=== PATIENT | female | born 1945 | race Caucasian/White ===

== ENCOUNTER 2020-12-12 10:13 | Inpatient (IN) | payer MEDICARE, OTHER ==
[2020-12-12] MEDS ORDERED: NA CHLORIDE 0.9% 1,000 ML ONE (11:05)
[2020-12-12] MEDS ORDERED: CEFTRIAXONE/SWI 1gm 1 GM/10 ML SYR ONE (11:05)
[2020-12-12] MEDS ORDERED: METRONIDAZOLE 500mg IVPB 500 MG/100 ML BAG IV ONE (11:05)
[2020-12-12 11:28] LABS: Absolute Lymphocytes (CBC) 0.9 K/uL (0.7-4.9); Basophils % 0.7 % (0-1.3); Hematocrit 37.2 % (36.0-45.0); Lymphocytes % 4.5 % (15.3-44.8); MPV 9.9 fL (7.6-11.3); RBC Red Blood Cell Count 3.81 M/uL (3.86-4.86)
--- NOTE | 2020-12-12 11:35 | RAD REPORT ---
EXAM DESCRIPTION: CT - C Spine Wo Con - 12/12/2020 10:37 am CLINICAL HISTORY: Neck pain, decreased mental status COMPARISON: None. TECHNIQUE: Axial 2 mm thick images of the cervical spine were obtained with sagittal and coronal rec onstruction images generated and reviewed. All CT scans are performed using dose optimization technique as appropriate and may include automated exposure control or mA/KV adjustment according to patient size. FINDINGS: Cervical bodies are normal in height. No fracture or pathologic bone process identifiable. There is a minimal left convex scoliotic curvature in the spine. Very slight retrolisthesis of C3 on C4 noted. Advanced degenerative change present at the dens anterior arch C1 level. Degenerative peralta ge present as well at the C1 lateral mass articulation with the C2 body. Advanced degenerative change at C6-7 with posterior endplate spurring and mild bilateral bony foramin al encroachment. Multilevel facet joint degenerative change. No other significant cervical spine find ing. No paraspinal mass or hematoma. Central canal detail is inherently limited on CT imaging. IMPRESSION: Cervical spine degenerative changes are present as detailed. No central spinal stenosis or significant foraminal stenosis changes. Exam is inherently limited in the central canal. Exam is further limited by the amount of underlying motion.
[2020-12-12 11:36] LABS: Protime INR 0.93
--- NOTE | 2020-12-12 11:38 | RAD REPORT ---
EXAM DESCRIPTION: CT - Head Brain Wo Cont - 12/12/2020 10:36 am CLINICAL HISTORY: CONFUSED COMPARISON: No comparisons TECHNIQUE: Axial 5 mm thick images of the head were obtained without IV contrast. All CT scans are performed using dose optimization technique as appropriate and may include automated exposure control or mA/KV adjustment according to patient size. FINDINGS: No intracranial hemorrhage is present. No midline shift. Moderate severity atrophy and adv anced chronic ischemic changes are present as a baseline. Ventricles are in proportion to the amount of volume loss. Approximately 5 centimeter area of diminished attenuation is present involving the le ft occipital and parietal lobes. There is loss of pace matter - white matter differentiation and sulc al effacement. No similar findings elsewhere. Mastoid air cells and visualized portions of the paranasal sinuses are clear. No acute bony findings. IMPRESSION: Approximately 5 centimeter sized subacute nonhemorrhagic left parietooccipital CVA. Moderate atrophy as a baseline with very advanced chronic ischemic change. Ventricles are in proporti on to volume loss.
[2020-12-12 11:51] LABS: ALT/SGPT 11 U/L (12-78); AST/SGOT 21 U/L (15-37); Albumin 3.1 g/dL (3.4-5.0); Alkaline Phosphatase 53 U/L (45-117); BUN Blood Urea Nitrogen 44 mg/dL (7-18); Bicarbonate 39 mmol/L (21-32); Bilirubin Direct < 0.1 mg/dL (0-0.2); Bilirubin Total 0.3 mg/dL (0.2-1.0); Glucose Level 142 mg/dL (74-106); Potassium 4.6 mmol/L (3.5-5.1); Protein, Total 6.3 g/dL (6.4-8.2); Sodium Level 139 mmol/L (136-145)
[2020-12-12 12:03] LABS: Blood Morphology Comment NOT SEEN (NOT SEEN); Platelet Estimate ADEQ
--- NOTE | 2020-12-12 12:53 | EDPHYS ---
Physician Documentation [facility] Name: Jeri Lemus Age: 75 yrs Sex: Female : 1945 Arrival Date: 12/12/2020 Time: 10:21 Bed 2 Private MD: ED Physician Artie Hudson HPI: 12/12 11:26 This 75 yrs old Female presents to ER via EMS with complaints of Unresponsive.ma2 11:26 Onset: The symptoms/episode began/occurred gradually, 1 day(s) ago. Associated signs ma2 and symptoms: Pertinent negatives: blurred vision, confusion, focal weakness, head injury, palpitations, seizure, shortness of breath, syncope. Severity of symptoms: At their worst the symptoms were mild in the emergency department the symptoms are unchanged. The patient has not experienced similar symptoms in the past, The patient has experienced a previous episode. Historical: - Allergies: 11:13 No Known Allergies; ld1 - PMHx: 11:13 COPD; ld1 11:15 Hypertension; tremor; ld1 - Immunization history:: Client reports receiving the 2nd dose of the Covid vaccine. - Social history:: Smoking status: unknown Patient/guardian denies using alcohol, IV drugs, The patient lives. - Family history:: not pertinent. ROS: 11:26 Constitutional: Negative for fever, chills, and weight loss. ma2 11:26 Unable to obtain ROS due to altered mental status, baseline dementia. Exam: 11:26 Head/Face: Normocephalic, atraumatic. Eyes: Pupils equal round and reactive to light, ma2 extra-ocular motions intact. Lids and lashes normal. Conjunctiva and sclera are non-icteric and not injected. Cornea within normal limits. Periorbital areas with no swelling, redness, or edema. ENT: Nares patent. No nasal discharge, no septal abnormalities noted. Tympanic membranes are normal and external auditory canals are clear. Oropharynx with no redness, swelling, or masses, exudates, or evidence of obstruction, uvula midline. Mucous membranes moist. Neck: Trachea midline, no thyromegaly or masses palpated, and no cervical lymphadenopathy. Supple, full range of motion without nuchal rigidity, or vertebral point tenderness. No Meningismus. Chest/axilla: Normal chest wall appearance and motion. Nontender with no deformity. No lesions are appreciated. Cardiovascular: Regular rate and rhythm with a normal S1 and S2. No gallops, murmurs, or rubs. Normal PMI, no JVD. No pulse deficits. Respiratory: Lungs have equal breath sounds bilaterally, bilateral wheezes. rr is 8 per minute she is in moderate respiratory distress Abdomen/GI: Soft, non-tender, with normal bowel sounds. No distension or tympany. No guarding or rebound. No evidence of tenderness throughout. Back: No spinal tenderness. No costovertebral tenderness. Full range of motion. Skin: Warm, dry with normal turgor. Normal color with no rashes, no lesions, and no evidence of cellulitis. MS/ Extremity: Pulses equal, no cyanosis. Neurovascular intact. Full, normal range of motion. 11:26 Neuro: Mentation: unable to follow commands, somnolent, unable to test, unresponsive . Vital Signs: 10:25 BP 113 / 78; Pulse 116; Resp 20; Pulse Ox 99% ; ld1 10:30 BP 122 / 71; Pulse 111; Resp 19; Pulse Ox 100% on Non-rebreather mask; ld1 11:15 BP 111 / 79; Pulse 111; Resp 17; Pulse Ox 99% on Non-rebreather mask; ld1 11:57 BP 114 / 74; Pulse 110; Resp 20; Pulse Ox 100% ; ld1 12:30 BP 124 / 88; Pulse 109; Resp 23; Pulse Ox 99% on Non-rebreather mask; ld1 13:15 BP 118 / 82; Pulse 104; Resp 17; Pulse Ox 99% ; ld1 13:45 BP 102 / 68; Pulse 102; Resp 17; Pulse Ox 100% on Non-rebreather mask; ld1 14:45 BP 110 / 90; Pulse 100; Resp 19; Pulse Ox 98% ; ld1 16:10 BP 108 / 79; Pulse 101; Resp 17; Pulse Ox 93% on Venturi mask; ld1 NIH Stroke Scale Scores: 12:30 NIHSS Score: 29 ld1 MDM: 10:21 Patient medically screened. ma2 11:26 Differential diagnosis: CVA, generalized weakness, GI bleed, head injury, hypovolemia, ma2 sepsis. ED course: i talked with her daughter Tai, she states that her mom ms. lemus does not want intubation or CPR, she also states that she wants hospice, and the order for hospice is in process.. 12:32 Data reviewed: vital signs, nurses notes. Counseling: I had a detailed discussion with maJosep the patient and/or guardian regarding: the historical points, exam findings, and any diagnostic results supporting the discharge/admit diagnosis, the presence of at least one elevated blood pressure reading (>120/80) during this emergency department visit. Response to treatment: the patient's symptoms have markedly improved after treatment. ED course: discussed with dr. Sousa and he is happy to see her in er '. 13:33 ED course: dr. phipps saw this patient and he also talked to the daughter Jose. it ma2 seems they have Hospice with nursing care at home. and they would not want admission at this time and would like to continue Hosp[ice. 14:42 ED course: family changed their mind and would like a hospitalization . [facility] 12/12 10:24 Order name: Acetaminophen; Complete Time: 12:26 [facility] 12/12 10:24 Order name: Basic Metabolic Panel; Complete Time: 12:26 [facility] 12/12 10:24 Order name: CBC with Diff; Complete Time: 12:26 [facility] 12/12 10:24 Order name: ETOH Level; Complete Time: 12:26 [facility] 12/12 10:24 Order name: Hepatic Function; Complete Time: 12:26 [facility] 12/12 10:24 Order name: PT-INR; Complete Time: 12:26 [facility] 12/12 10:24 Order name: Ptt, Activated; Complete Time: 12:26 [facility] 12/12 10:24 Order name: Salicylate; Complete Time: 12:26 [facility] 12/12 10:24 Order name: Urine Drug Screen; Complete Time: 13:33 [facility] 12/12 10:42 Order name: Blood Culture Adult (2) [facility] 12/12 10:42 Order name: Lactate; Complete Time: 12:26 [facility] 12/12 11:26 Order name: COVID-19 : Document "Date of Symptom Onset" if Symptomatic. [facility] 12/12 12:03 Order name: Manual Differential; Complete Time: 12:26 EDMA 12/12 10:24 Order name: CT Head Brain wo Cont; Complete Time: 12:26 [facility] 12/12 10:24 Order name: EKG; Complete Time: 10:24 al2 12/12 10:24 Order name: EKG - Nurse/Tech; Complete Time: 11:57 al2 12/12 10:24 Order name: IV Saline Lock; Complete Time: 11:16 al2 12/12 10:24 Order name: Labs collected and sent; Complete Time: 11:17 al2 12/12 10:24 Order name: Urine Dipstick-Ancillary (obtain specimen); Complete Time: 14:38 al2 12/12 10:24 Order name: CT C Spine; Complete Time: 12:26 al2 12/12 12:42 Order name: CXR XRAY [facility] 12/12 12:42 Order name: Chest Single View; Complete Time: 13:33 EDMS 12/12 12:48 Order name: SARS-COV-2 RT PCR; Complete Time: 13:33 EDMS 12/12 14:29 Order name: Straight Cath - Urine; Complete Time: 14:38 al2 12/12 14:46 Order name: Urinalysis jl7 Administered Medications: 11:05 Drug: NS 0.9% 1000 ml Route: IV; Rate: 125 ml/hr; Site: right forearm; ld1 16:44 Follow up: Response: No adverse reaction; IV Status: Infusion continued upon admission ld1 11:05 Drug: Flagyl 500 mg Volume: 100 ml; Route: IVPB; Rate: 200 ml/hr; Infused Over: 30 ld1 mins; Site: right forearm; 11:35 Follow up: Response: No adverse reaction; IV Status: Completed infusion ld1 11:59 Follow up: Response: No adverse reaction ld1 11:08 Drug: Rocephin (cefTRIAXone) 1 grams Route: IV; Rate: calculated rate; Site: left ld1 forearm; 11:25 Follow up: Response: No adverse reaction ld1 Disposition: 12/12/20 14:41 Hospitalization ordered by Jg Phipps for Observation. Preliminary diagnosis is Cerebral infarction. - Bed requested for Telemetry/MedSurg (observation). - Status is Observation. ld1 - Condition is Stable. - Problem is new. - Symptoms are unchanged. NIH Stroke Scale - NIH Stroke Score Date: 12/12/2020 Time: 12:30 Total Score = 29 1a. Level of Consciousness (LOC) - 3(Unresponsive) 1b. Level of Consciousness (LOC) (Year \\T\\ Age) - 2(Neither) 1c. LOC Commands (Open \\T\\ Closes Eyes/Managing Consultant Clinical Professor) - 2(Neither) 2. Best Gaze (Lateral Gaze Paresis) - 0(Normal) 3. Visual Field Loss - 1(Partial hemianopia) 4. Facial Palsy - 0(Normal) 5a. Left Arm: Motor (10-second hold) - 3(No effort against gravity) 5b. Right Arm: Motor (10-second hold) - 3(No effort against gravity) 6a. Left Leg: Motor (5-second hold - always test supine) - 3(No effort against gravity) 6b. Right Leg: Motor (5-second hold - always test supine) - 3(No effort against gravity) 7. Limb Ataxia (finger/nose \\T\\ heel/lizama - test with eyes open) - 0(Absent) 8. Sensory Loss (pinprick arms/legs/face) - 2(Severe to total loss) 9. Best Language: Aphasia (description/naming/reading) - 3(Mute, global aphasia) 10. Dysarthria (speech clarity - read or repeat words) - 2(Severe) 11. Extinction and Inattention (visual/tactile/auditory/spatial/personal) - 2(Profound) Initials: ld1 Signatures: Dispatcher [employer] EDMS Artie Hudson MD MD ma2 Yuly Mcpherson Lauren, RN RN ld1 Corrections: (The following items were deleted from the chart) 12:05 11:27 CORONAVIRUS ordered. EDMA EDMS 13:35 12:52 Hospitalization Ordered by Jg Phipps DO for Inpatient Admission. ma2 Preliminary diagnosis is Cerebral infarction. Bed requested for Telemetry/MedSurg (Inpatient). Status is Inpatient Admission. Condition is Stable. Problem is new. Symptoms are unchanged. ma2 14:41 13:52 12/12/2020 13:52 Discharged to Home. Impression: Cerebral infarction; ma2 Pneumonia due to other specified infectious organisms. Condition is Fair. Discharge Instructions: Community-Acquired Pneumonia, Adult, Ischemic Stroke Treated Without Warfarin. Prescriptions for Zithromax Z-Paolo 250 mg Oral Tablet - take 1 tablet by ORAL route as directed for 5 days Day 1 - take two (2) tablets one time. Day 2, 3, 4 , 5 take one (1) tablet once daily.; 6 tablet. and Forms are Medication Reconciliation Form, Thank You Letter, Antibiotic Education, Prescription Opioid Use. Follow up: Private Physician; When: Tomorrow; Reason: Continuance of care. ma2 15:23 14:41 Hospitalization Ordered by Jg Phipps DO for Observation. Preliminary eb diagnosis is Cerebral infarction. Bed requested for Telemetry/MedSurg (observation). Status is Observation. Condition is Stable. Problem is new. Symptoms are unchanged. al2 16:43 15:23 12/12/2020 14:41 Hospitalization Ordered by Jg Phipps DO for ld1 Observation. Preliminary diagnosis is Cerebral infarction. Bed requested for Telemetry/MedSurg (observation). Status is Observation. Condition is Stable. Problem is new. Symptoms are unchanged. eb
--- NOTE | 2020-12-12 12:53 | ER ---
Nurse's Notes [facility] Name: Jeri Che Age: 75 yrs Sex: Female : 1945 Arrival Date: 12/12/2020 Time: 10:21 Bed 2 Private MD: Diagnosis: Cerebral infarction Presentation: 12/12 10:21 Chief complaint: EMS states: Toned out by family due to unresponsive, baseline AOx4, ld1 currently patient not verbally responding, unresponsive to pain, 76% on room air upon arrival, up to 99% on non rebreather. Coronavirus screen: Client denies travel out of the [place] in the last 14 days. Client presents with at least one sign or symptom that may indicate coronavirus-19. Ebola Screen: No symptoms or risks identified at this time. 10:21 Method Of Arrival: EMS: [facility] ld1 10:25 Initial Sepsis Screen: Does the patient meet any 2 criteria? RR > 20 per min. Altered ld1 Mental Status. HR > 90 bpm. Does the patient have a suspected source of infection? No. Patient's initial sepsis screen is negative. Risk Assessment: Do you want to hurt yourself or someone else? Patient reports no desire to harm self or others. Onset of symptoms was December 12, 2020. 10:25 Acuity: DARIAN 2 ld1 11:10 Care prior to arrival: IV initiated. 20 GA, in the right forearm, Glucose check: 156 ld1 Oxygen administered. via a non-rebreather mask. Transition of care: patient was not received from another setting of care. Triage Assessment: 16:08 General: Appears uncomfortable, slender, Behavior is calm, cooperative, drowsy, quiet, ld1 unresponsive. Historical: - Allergies: 11:13 No Known Allergies; ld1 - PMHx: 11:13 COPD; ld1 11:15 Hypertension; tremor; ld1 - Immunization history:: Client reports receiving the 2nd dose of the Covid vaccine. - Social history:: Smoking status: unknown Patient/guardian denies using alcohol, IV drugs, The patient lives. - Family history:: not pertinent. Screenin:30 Abuse screen: Unable to obtain. Nutritional screening: Unable to obtain.. Tuberculosis ld1 screening: No symptoms or risk factors identified. Fall Risk IV access (20 points). Total Rausch Fall Scale indicates High Risk Score (45 or more points). Fall prevention measures have been instituted. Side Rails Up X 2 Placed Close to Nursing Station Frequent Obs/Assessments Occuring Family Present and informed to notify staff if the need to leave the bedside As available patient and family educated on Fall Prevention Program and Strategies. 11:00 The patient has not been NPO before screening. The patient is currently on the ld1 following diet: Regular The patient is not alert, or is unable to follow commands. Bedside swallow screening discontinued. Patient kept NPO until cleared by Speech Therapy or Physician. The patient failed the bedside swallow screening. The patient will be kept NPO until cleared by Speech Therapy or Physician. Provider notified of bedside swallow screening results: Artie Hudson MD. Assessment: 10:30 Pain: Unable to use pain scale. Patient is unresponsive. Neuro: Level of Consciousness ld1 is unresponsive, Oriented to none. Cardiovascular: Patient's skin is warm and dry. Respiratory: Airway is patent Respiratory effort is even, shallow, weak, Respiratory pattern is regular, symmetrical. GI: Abdomen is flat, non-distended. EENT: Eyes are tearing on right eye and left eye. Derm: Skin is intact, is fragile, is thin, Skin is dry, Skin is pale, Skin temperature is warm. 10:40 Reassessment: Dr. Devi on phone with family, family states patient has DNR and they ld1 do not want intubation at this time. 10:50 Reassessment: DaughterShubham at bedside. ld1 13:00 Reassessment: Patient straight cath'd, brief noted to be full of urine with foul odor. ld1 Patient's daughter reports patient went to bed last night with a new brief on and hasn't been changed since then. 14:25 Reassessment: Pt's daughter, Shubham, requesting for pt to be hospitalized, ERD notified. jl7 14:30 Reassessment: Hospitalist at bedside. jl7 15:15 Reassessment: Speech therapy at bedside for swallow screen. ld1 15:25 Reassessment: Patient switched from non rebreather to Venturi mask at 15L 50% oxygen ld1 delivery, O2 sat to 92%. Vital Signs: 10:25 BP 113 / 78; Pulse 116; Resp 20; Pulse Ox 99% ; ld1 10:30 BP 122 / 71; Pulse 111; Resp 19; Pulse Ox 100% on Non-rebreather mask; ld1 11:15 BP 111 / 79; Pulse 111; Resp 17; Pulse Ox 99% on Non-rebreather mask; ld1 11:57 BP 114 / 74; Pulse 110; Resp 20; Pulse Ox 100% ; ld1 12:30 BP 124 / 88; Pulse 109; Resp 23; Pulse Ox 99% on Non-rebreather mask; ld1 13:15 BP 118 / 82; Pulse 104; Resp 17; Pulse Ox 99% ; ld1 13:45 BP 102 / 68; Pulse 102; Resp 17; Pulse Ox 100% on Non-rebreather mask; ld1 14:45 BP 110 / 90; Pulse 100; Resp 19; Pulse Ox 98% ; ld1 16:10 BP 108 / 79; Pulse 101; Resp 17; Pulse Ox 93% on Venturi mask; ld1 NIH Stroke Scale Scores: 12:30 NIHSS Score: 29 ld1 ED Course: 10:21 Patient arrived in ED. ld1 10:21 Artie Hudson MD is Attending Physician. ma2 10:26 Triage completed. ld1 10:30 Patient has correct armband on for positive identification. Placed in gown. Bed in low ld1 position. Call light in reach. Side rails up X2. pm head cook on. Pulse ox on. NIBP on. Warm blanket given. Pillow given. 10:30 Maintain EMS IV. Dressing intact. Good blood return noted. Site clean \\T\\ dry. Gauge \\T\\ ld 1 site: 20 g to RFA. IV is patent, is intact. 10:36 CT Head Brain wo Cont In Process Unspecified. EDMS 10:36 CT C Spine In Process Unspecified. EDMS 10:55 Initial lab(s) drawn, by pr, sent to lab. First set of blood cultures drawn by pr. jl7 11:04 Inserted saline lock: 20 gauge in left forearm, using aseptic technique. Blood jl7 collected. 11:04 Second set of blood cultures drawn by pr. jl7 11:09 Jennifer Osorio, RN is Primary Nurse. ld1 11:15 Arm band placed on right wrist. ld1 11:57 COVID-19 : Document "Date of Symptom Onset" if Symptomatic. Sent. ld1 12:46 Chest Single View In Process Unspecified. EDMS 12:51 Jg Delarosa DO is Hospitalizing Provider. ma2 13:00 Urine collected: straight cath specimen, clear. Straight cath inserted, using sterile ld1 technique, 16 Fr. Specimen obtained. Returned clear yellow urine. 14:41 Jg Delarosa DO is Hospitalizing Provider. ma2 15:59 No provider procedures requiring assistance completed. Patient admitted, IV remains in ld1 place. intact, No redness/swelling at site. Administered Medications: 11:05 Drug: NS 0.9% 1000 ml Route: IV; Rate: 125 ml/hr; Site: right forearm; ld1 16:44 Follow up: Response: No adverse reaction; IV Status: Infusion continued upon admission ld1 11:05 Drug: Flagyl 500 mg Volume: 100 ml; Route: IVPB; Rate: 200 ml/hr; Infused Over: 30 ld1 mins; Site: right forearm; 11:35 Follow up: Response: No adverse reaction; IV Status: Completed infusion ld1 11:59 Follow up: Response: No adverse reaction ld1 11:08 Drug: Rocephin (cefTRIAXone) 1 grams Route: IV; Rate: calculated rate; Site: left ld1 forearm; 11:25 Follow up: Response: No adverse reaction ld1 Outcome: 12:52 Decision to Hospitalize by Provider. ma2 13:52 Discharge ordered by . ma2 14:41 Decision to Hospitalize by Provider. ma2 16:10 Admitted to Med/surg accompanied by tech, via stretcher, room 230, with chart, Report ld1 called to KETAN Heath. 16:12 Condition: unchanged ld1 16:12 Discharge instructions given to Patient was admitted to MED SURG. 16:43 Patient left the ED. ld1 NIH Stroke Scale - NIH Stroke Score Date: 12/12/2020 Time: 12:30 Total Score = 29 1a. Level of Consciousness (LOC) - 3(Unresponsive) 1b. Level of Consciousness (LOC) (Year \\T\\ Age) - 2(Neither) 1c. LOC Commands (Open \\T\\ Closes Eyes/Pier Worker) - 2(Neither) 2. Best Gaze (Lateral Gaze Paresis) - 0(Normal) 3. Visual Field Loss - 1(Partial hemianopia) 4. Facial Palsy - 0(Normal) 5a. Left Arm: Motor (10-second hold) - 3(No effort against gravity) 5b. Right Arm: Motor (10-second hold) - 3(No effort against gravity) 6a. Left Leg: Motor (5-second hold - always test supine) - 3(No effort against gravity) 6b. Right Leg: Motor (5-second hold - always test supine) - 3(No effort against gravity) 7. Limb Ataxia (finger/nose \\T\\ heel/lizama - test with eyes open) - 0(Absent) 8. Sensory Loss (pinprick arms/legs/face) - 2(Severe to total loss) 9. Best Language: Aphasia (description/naming/reading) - 3(Mute, global aphasia) 10. Dysarthria (speech clarity - read or repeat words) - 2(Severe) 11. Extinction and Inattention (visual/tactile/auditory/spatial/personal) - 2(Profound) Initials: ld1 Signatures: Dispatcher [employer] EDJustin Mackey RN RN jl7 Artie Hudson MD MD ma2 Jennifer Osorio RN RN ld1 Corrections: (The following items were deleted from the chart) 14:55 14:48 Pain: Unable to use pain scale. Patient is unresponsive. ld1 ld1 14: 14:48 Neuro: Level of Consciousness is unresponsive, Oriented to none ld1 ld1 14: 14:48 Cardiovascular: Patient's skin is warm and dry. ld1 ld1 14: 14:48 Respiratory: Airway is patent Respiratory effort is even, shallow, weak, ld1 Respiratory pattern is regular, symmetrical, ld1 14: 14:48 GI: Abdomen is flat, non-distended, ld1 ld1 14:55 14:48 EENT: Eyes are tearing on right eye and left eye ld1 ld1 14:55 14:48 Derm: Skin is intact, is fragile, is thin, Skin is dry, Skin is pale, ld1 Skin temperature is warm ld1 16:12 16:10 Admitted to Med/surg ld1 ld1
--- NOTE | 2020-12-12 12:57 | RAD REPORT ---
EXAM DESCRIPTION: RAD - Chest Single View - 12/12/2020 12:46 pm CLINICAL HISTORY: CONGESTION, COPD, hypertension COMPARISON: None TECHNIQUE: AP portable chest image was obtained 12/12/2020 12:46 pm . FINDINGS: Extensive interstitial lung disease is present. Baseline for the patient is unknown. Left hemidiaphragm elevation is present. A focal consolidation is not seen. Heart and vasculature are norm al. No measurable pleural effusion and no pneumothorax. No acute bony abnormality seen. No acute aort ic findings suspected. IMPRESSION: Baseline examination showing extensive interstitial opacification throughout both lung f ields, worse in the right upper lobe. Patient likely has significant interstitial lung disease. Acute interstitial edema or infiltrate supe rimposed on fibrosis is suspected.
[2020-12-12 13:04] LABS: Barbiturates NEGATIVE (NEGATIVE); Benzodiazepines POSITIVE (NEGATIVE); Cocaine NEGATIVE (NEGATIVE); METHAMPHETAM NEGATIVE (NEGATIVE); Methadone NEGATIVE (NEGATIVE); Opiates POSITIVE (NEGATIVE); Phencyclidine NEGATIVE (NEGATIVE); THC Cannibis NEGATIVE (NEGATIVE)
--- NOTE | 2020-12-12 14:00 | P.CNS ---
Date of Consult: 12/12/20 Reason for Consult: Admission evaluation Requesting Physician: Artei Hudson Primary Care Provider: Dr. Christensen; Pulmonary-Dr. Chin Chief Complaint: Altered mental status History of Present Illness: 75-year-old female with end-stage COPD, restless leg syndrome, chronic steroid use, depression with anxiety, hypertension and Parkinson's. Patient is currently with [facility] hospice due to her end-stage COPD. Patient was brought in by family due to altered mental status. Daughter reports that the patient fell likely on Tuesday. She had reported some pain to her chest. Hospice had been providing medication for pain. Yesterday the patient got morphine and tramadol. Poor intake noted. Daughter reported this morning that the patient had difficulty responding. Increase sedation noted. She was brought into the ER for further evaluation. In the ER patient evaluated. CT scan revealed 5 cm size subacute nonhemorrhagic left parietal occipital CVA. Very advanced chronic ischemic changes also noted. Chest x-ray showed extensive interstitial opacification in both lungs likely interstitial lung disease. Fibrosis suspected. C-spine showed degenerative changes. White count 20, hemoglobin 12.2. Platelet count 224. Sodium 139, potassium 4.6. BUN 44, creatinine 0.6 with a GFR of 87. Glucose 142. Lactic acid 1.6. INR 0.93. Patient was evaluated for possible admission versus going home with hospice. Daughter at bedside reports patient currently in hospice care. Daughter reports patient is DO NOT RESUSCITATE and DO NOT INTUBATE. Medications reviewed with daughter. Patient takes Mirapex 1.5 mg daily, prednisone 20 mg daily, sertraline 100 mg daily, Lasix 20 mg daily, Risperdal 0.5 mg daily, Norvasc 10 mg daily, alprazolam 0.5 mg twice daily and carbidopa levodopa 25/100 mg daily. Home medications list reviewed: Yes - Past Medical/Surgical History Diabetic: No -: End-stage COPD/interstitial fibrosis -: Restless leg syndrome -: Chronic steroid use -: Hypertension -: Parkinson's Past Surgical History: Reviewed- Non-Contributory Psychosocial/ Personal History: Patient currently at home with hospice - Family History Mother Family History: Reviewed- Non-Contributory - Social History Smoking Status: Heavy Tobacco smoker (>10 cigarettes/day) Alcohol use: No CD- Drugs: No Caffeine use: No Place of Residence: Home Review of Systems General: Weakness, Malaise Eyes: Unremarkable ENT: Unremarkable Respiratory: Shortness of Breath, As per HPI Cardiovascular: Unremarkable Gastrointestinal: As per HPI Genitourinary: Unremarkable Musculoskeletal: Unremarkable Integumentary: Unremarkable Neurological: As per HPI Lymphatics: Unremarkable Physical Examination General: Other (Patient with increase sedation. Some alertness noted but stable.) HEENT: Atraumatic, Normocephalic, Other (Dry mucous membranes) Neck: Supple Respiratory: Other (Crackles to the bases) Cardiovascular: Regular rate/rhythm Gastrointestinal: Normal bowel sounds, No guarding Integumentary: Other (Skin appears dry. Muscle wasting to the upper and lower extremities.) Neurological: Other (Decreased mentation noted. Some sedation noted.) Laboratory Data (last 24 hrs) 12/12/20 11:04: PT 10.7, INR 0.93, APTT 23.3 L 12/12/20 11:04: WBC 20.50 H*, Hgb 12.2, Hct 37.2, Plt Count 224 12/12/20 11:04: Sodium 139, Potassium 4.6, BUN 44 H, Creatinine 0.66, Glucose 142 H, Total Bilirubin 0.3, AST 21, ALT 11 L, Alkaline Phosphatase 53 Conclusions/Impression: Impression: Acute encephalopathy likely related to 5 cm subacute nonhemorrhagic left parietal occipital CVA Leukocytosis likely related to possible UTI complicated with chronic steroid use End-stage COPD with interstitial fibrosis on hospice Hypertension Depression with anxiety Parkinson's Restless leg syndrome Plan: Care discussed with daughter who was present at bedside. Daughter reports patient is with hospice at home. This is related to her end-stage COPD with interstitial fibrosis. Explained to daughter new finding of subacute CVA and elevated white count. Elevated white count could be related to possible UTI versus chronic steroid use. Patient with end-stage COPD on hospice. After review with daughter of possible admission with plan of care versus going home with hospice, the daughter wishes for the patient to go back with hospice care at home. This was discussed in detail with ER physician. I spoke with social work job titles to help arrange for the patient to go back at home with hospice. Continue current medications and comfort measures. No need for admission at this time as recommended above and after discussion with daughter.. Time Spent Managing Pts care (In Minutes): 55
--- NOTE | 2020-12-12 15:06 | P.HP ---
Certification for Inpatient Patient admitted to: Observation With expected LOS: <2 Midnights Patient will require the following post-hospital care: Hospice Practitioner: I am a practitioner with admitting privileges, knowledge of patient current condition, hospital course, and medical plan of care. Services: Services provided to patient in accordance with Admission requirements found in Title 42 Section 412.3 of the Code of Federal Regulations Patient History Date of Service: 12/12/20 Primary Care Provider: Dr. Christensen; Pulmonary-Dr. Chin Reason for admission: Altered mental status History of Present Illness: 75-year-old female with end-stage COPD, restless leg syndrome, chronic steroid use, depression with anxiety, hypertension and Parkinson's. Patient is currently with [facility] hospice due to her end-stage COPD. Patient was brought in by family due to altered mental status. Daughter reports that the patient fell likely on Tuesday. She had reported some pain to her chest. Hospice had been providing medication for pain. Yesterday the patient got morphine and tramadol. Poor intake noted. Daughter reported this morning that the patient had difficulty responding. Increase sedation noted. She was brought into the ER for further evaluation. In the ER patient evaluated. CT scan revealed 5 cm size subacute nonhemorrhagic left parietal occipital CVA. Very advanced chronic ischemic changes also noted. Chest x-ray showed extensive interstitial opacification in both lungs likely in terstitial lung disease. Fibrosis suspected. C-spine showed degenerative changes. White count 20, hemoglobin 12.2. Platelet count 224. Sodium 139, potassium 4.6. BUN 44, creatinine 0.6 with a GFR of 87. Glucose 142. Lactic acid 1.6. INR 0.93. Patient was evaluated for possible admission versus going home with hospice. Daughter at bedside reports patient currently in hospice care. Daughter reports patient is DO NOT RESUSCITATE and DO NOT INTUBATE. Medications reviewed with daughter. Patient takes Mirapex 1.5 mg daily, prednisone 20 mg daily, sertraline 100 mg daily, Lasix 20 mg daily, Risperdal 0.5 mg daily, Norvasc 10 mg daily, alprazolam 0.5 mg twice daily and carbidopa levodopa 25/100 mg daily. Allergies No Known Allergies Allergy (Verified 12/12/20 14:53) - Past Medical/Surgical History Diabetic: No -: End-stage COPD/interstitial fibrosis -: Restless leg syndrome -: Chronic steroid use -: Hypertension Past Surgical History: Reviewed- Non-Contributory Psychosocial/ Personal History: Patient currently at home with hospice - Family History Family History: Reviewed- Non-Contributory - Social History Smoking Status: Heavy Tobacco smoker (>10 cigarettes/day) Alcohol use: No CD- Drugs: No Caffeine use: No Place of Residence: Home Review of Systems General: As per HPI Eyes: Unremarkable ENT: Unremarkable Respiratory: As per HPI Cardiovascular: Unremarkable Gastrointestinal: Unremarkable Genitourinary: Unremarkable Musculoskeletal: Unremarkable Integumentary: Unremarkable Neurological: Confusion, As per HPI Lymphatics: Unremarkable Physical Examination - Physical Exam General: Alert, Disheveled, Other HEENT: Atraumatic, Other (Dry mucous membranes) Neck: Supple Respiratory: Crackles/rales (Crackles to the bases), Expiratory wheezes Cardiovascular: Normal pulses, Regular rate/rhythm Gastrointestinal: Normal bowel sounds, No tenderness, No masses, No rebound, No guarding Musculoskeletal: No tenderness, No warmth Integumentary: No tenderness/swelling Neurological: Other (Muscle wasting throughout. Dry skin noted. Patient with increased sedation. Patient appears alert but not following commands.) - Studies Laboratory Data (last 24 hrs) 12/12/20 11:04: PT 10.7, INR 0.93, APTT 23.3 L 12/12/20 11:04: WBC 20.50 H*, Hgb 12.2, Hct 37.2, Plt Count 224 12/12/20 11:04: Sodium 139, Potassium 4.6, BUN 44 H, Creatinine 0.66, Glucose 142 H, Total Bilirubin 0.3, AST 21, ALT 11 L, Alkaline Phosphatase 53 Assessment and Plan - Plan Impression: Acute encephalopathy likely related to 5 cm subacute nonhemorrhagic left parietal occipital CVA Leukocytosis likely related to possible UTI complicated with chronic steroid use End-stage COPD with interstitial fibrosis on hospice Hypertension Depression with anxiety Parkinson's Restless leg syndrome Plan: Acute encephalopathy likely related to 5 cm subacute nonhemorrhagic left parietal occipital CVA complicated with Leukocytosis likely related to possible UTI/pneumonia/chronic steroid use: Patient was to go home with hospice from the ER but daughter wanted the patient to be admitted for further evaluation. After review of current information and recommendations by neurology, the daughter wants the patient to be evaluated for possible underlying infection and to see if there will be any significant change in her status. She understands that she has a subacute CVA. Possible infection is likely. We will start IV Zosyn to cover for aspiration and UTI. Await blood, urine culture results. Will provide IV fluids as well. We will have physical therapy, occupational therapy and speech evaluate patient. After review with neurology no need for further evaluation of CVA which would include MRI, echo and carotid Doppler since the patient is on hospice. This was discussed with daughter who agrees with plan. Daughter understands patient current condition may be her new baseline. Advanced directives readdressed with daughter. Daughter wishes the patient to remain DNR and DNI. We will continue to reassess and evaluate. We will start aspirin, folic acid, thiamine, and Lipitor. Continue to monitor cardiac enzymes. We will continue to reassess. If no significant change or worsening by tomorrow daughter will plan for the patient to return home with hospice in place. Daughter does not want to pursue any PEG tube placement if required or needed. Will reassess tomorrow. End-stage COPD with interstitial fibrosis on hospice: Continue with IV Solu- Medrol, COPD medication, and nebulizers. Maintain oxygen above 93%. Hypertension: Restart Norvasc. Will monitor and adjust appropriately. Depression with anxiety: Restart sertraline. Will provide Ativan as needed. Parkinson's: Continue with carbidopa levodopa. Restless leg syndrome: Continue with Mirapex. Discharge Plan: Home (Home with hospice) Plan to discharge in: 48 Hours - Advance Directives Does patient have a Living Will: No Does patient have a Durable POA for Healthcare: No - Code Status/Comfort Care Code Status Assessed: Yes (Patient is DNR/DNI) Time Spent Managing Pts Care (In Minutes): 55
[2020-12-12 15:35] LABS: Urine Appearance CLEAR (Clear); Urine Bilirubin NEGATIVE (Negataive); Urine Blood NEGATIVE (Negative); Urine Color YELLOW (Yellow); Urine Glucose NEGATIVE (Negative); Urine Protein NEGATIVE (Negative); Urine Urobilinogen 0.2 mg/dL (0.2-1.0)
[2020-12-12 15:46] LABS: Urine Microscopic Reflex NO UMIC
[2020-12-12] MEDS ORDERED: LORazepam 2 MG/ML VIAL IV PRN (16:11)
[2020-12-12] MEDS ORDERED: IPRATROPIUM BROM 0.5MG/2.5ML NEB PRN (16:11)
[2020-12-12] MEDS ORDERED: ACETAMINOPHEN 500 MG TAB PO PRN (16:11)
[2020-12-12] MEDS ORDERED: RISPERIDONE 0.25 MG TABLET PO PRN (16:11)
[2020-12-12] MEDS ORDERED: ONDANSETRON 4 MG/2 ML VIAL IV PRN (16:11)
[2020-12-12] MEDS ORDERED: ALBUTEROL 2.5 MG/3 ML NEB SOL NEB PRN (16:11)
[2020-12-12] MEDS ORDERED: ACETAMINOPHEN 650MG/RECT SUPP PR PRN (16:11)
[2020-12-12] MEDS: METHYLPREDNISOLONE 40 MG INJ IV SCH (17:00)
[2020-12-12] MEDS: D5 0.9 NS 1,000 ML IV SCH (17:05)
[2020-12-12] MEDS: PIPER/TAZO/NS 3.375gm 3.375 GM/100 ML BAG IVPB SCH (17:06)
[2020-12-12] MEDS: ENOXAPARIN 40 MG/0.4 ML SQ SCH (17:13)
[2020-12-12 18:09] VITALS: BMI 17.3
[2020-12-12] MEDS: ARFORMOTEROL TARTRATE 15 MCG/2 ML VIAL.NEB NEB SCH (19:35)
[2020-12-12] MEDS: ATORVASTATIN 40 MG TAB PO SCH (20:20)
[2020-12-12] MEDS: SERTRALINE HCL 100 MG TAB PO SCH (20:20)
[2020-12-12] MEDS ORDERED: FAMOTIDINE 20 MG/2 ML VIAL IV SCH (21:00)
[2020-12-13] MEDS: PIPER/TAZO/NS 3.375gm 3.375 GM/100 ML BAG IVPB SCH ×3 (00:36→17:05)
[2020-12-13] MEDS: METHYLPREDNISOLONE 40 MG INJ IV SCH (00:36)
[2020-12-13] MEDS: D5 0.9 NS 1,000 ML IV SCH ×3 (05:31→07:49)
[2020-12-13 06:38] LABS: Absolute Lymphocytes (CBC) 0.3 K/uL (0.7-4.9); Basophils % 0.1 % (0-1.3); Hematocrit 34.5 % (36.0-45.0); Lymphocytes % 2.7 % (15.3-44.8); MPV 10.3 fL (7.6-11.3); RBC Red Blood Cell Count 3.51 M/uL (3.86-4.86)
[2020-12-13 06:52] LABS: BUN Blood Urea Nitrogen 33 mg/dL (7-18); Bicarbonate 33 mmol/L (21-32); Glucose Level 117 mg/dL (74-106); HDL Cholesterol 58 mg/dL (40-60); LDL Cholesterol, Calculated 79 (<130); Magnesium 2.1 mg/dL (1.8-2.4); Potassium 4.2 mmol/L (3.5-5.1); Sodium Level 144 mmol/L (136-145); Thyroid Stimulating Hormone 0.341 uIU/mL (0.360-3.740)
--- NOTE | 2020-12-13 07:48 | P.PN ---
Subjective Date of Service: 12/13/20 Primary Care Provider: Dr. Christensen; Pulmonary-Dr. Chin Chief Complaint: Altered mental status Subjective: Improving, Doing well, Other (Patient more alert. Daughter at bedside.) Physical Examination - Vital Signs Temperature: 97.5 F Blood Pressure: 113/70 Pulse: 95 Respirations: 18 Pulse Ox (%): 97 - Studies Laboratory Data (last 24 hrs) 12/12/20 11:04: PT 10.7, INR 0.93, APTT 23.3 L 12/12/20 11:04: WBC 20.50 H*, Hgb 12.2, Hct 37.2, Plt Count 224 12/12/20 11:04: Sodium 139, Potassium 4.6, BUN 44 H, Creatinine 0.66, Glucose 142 H, Total Bilirubin 0.3, AST 21, ALT 11 L, Alkaline Phosphatase 53 Assessment & Plan Discharge Plan: Home Plan to discharge in: 24 Hours Physician Review Additional Text: Physical exam: Patient alert, cooperative. Patient able to follow commands. Moving all fours. More appropriate today. Heart: Regular rate and rhythm Lungs: Crackles to the bases Abdomen: Soft nontender nondistended Extremities: Good range of motion to the upper lower extremities. No focal deficits noted. Impression: Acute encephalopathy likely related to 5 cm subacute nonhemorrhagic left parietal occipital CVA Leukocytosis likely related to possible aspiration pneumonia complicated with chronic steroid use End-stage COPD with interstitial fibrosis on hospice Hypertension Depression with anxiety Parkinson's Restless leg syndrome Plan: Acute encephalopathy likely related to 5 cm subacute nonhemorrhagic left parietal occipital CVA complicated with Leukocytosis likely related to possible aspiration pneumonia/chronic steroid use: Patient more alert this morning. Speech evaluated patient yesterday but due to her sedation patient was kept n.p.o. Nurse able to evaluate swallowing today. She is able to pass her swallow test. We will start heart healthy diet. Will adjust medications to oral. Spoke with patient and daughter. physical therapy, Occupational Therapy evaluate patient. Continue IV antibiotic therapy to cover for possible aspiration pneumonia. Urinalysis negative. Await blood culture results. Continue COPD medication. Continue medication for hypertension and depression. Await to see what patient will be able to do as far as with ambulation. Spoke with neurology yesterday and other sister, no need for further evaluation of CVA which would include MRI, echo and carotid Doppler since the patient is on hospice. Continue with plan of care to help recuperate patient back to her baseline status. Then home with hospice. Anticipate this will likely occur within the next 24 to 48 hours. Discussed case with case management to help arrange for hospice at discharge. End-stage COPD with interstitial fibrosis on hospice: We will change Solu-Medrol to oral prednisone. Continue COPD medication and nebulizers. Maintain oxygen above 93%. Hypertension: Continue Norvasc. Parameters in place. Will monitor and adjust appropriately. Depression with anxiety: Continue sertraline. Will provide Ativan as needed. Parkinson's: Continue with carbidopa levodopa. Restless leg syndrome: Continue with Mirapex. Time Spent Managing Pts Care (In Minutes): 55
[2020-12-13] MEDS ORDERED: HYDROCODONE/APAP 7.5/325 MG TAB PO PRN (07:51)
[2020-12-13] MEDS ORDERED: TRAMADOL HCL 50 MG TAB PO PRN (07:51)
[2020-12-13] MEDS ORDERED: THIAMINE 200 MG/2 ML INJ IVP SCH (09:00)
[2020-12-13] MEDS: ARFORMOTEROL TARTRATE 15 MCG/2 ML VIAL.NEB NEB SCH ×2 (09:00→19:50)
[2020-12-13] MEDS ORDERED: FOLIC ACID 1 MG in NA CHLORIDE 0.9% 50 ML IV SCH (09:00)
[2020-12-13] MEDS ORDERED: FOLIC ACID 5 MG/ML VIAL IVP SCH (09:00)
[2020-12-13] MEDS ORDERED: CARBIDOPA/LEVODOPA 25/100 TAB PO SCH (09:00)
--- NOTE | 2020-12-13 09:19 | RAD REPORT ---
EXAM DESCRIPTION: Phil Single View12/13/2020 6:36 am CLINICAL HISTORY: Shortness breath COMPARISON: December 12, 2020 FINDINGS: The left hemidiaphragm remains elevated. Mild improvement right pulmonary opacities. No change in left pulmonary opacities. The residual lung opacities are likely mostly chronic. Heart is borderline enlarged. PICC line with its tip near the SCC atrium juncture
[2020-12-13] MEDS: ASPIRIN EC 81 MG TAB PO SCH (09:21)
[2020-12-13] MEDS: FAMOTIDINE 20 MG TAB PO SCH (09:22)
[2020-12-13] MEDS: AMLODIPINE 5 MG TAB PO SCH (09:23)
[2020-12-13] MEDS: FOLIC ACID 1 MG TABLET PO SCH (09:24)
[2020-12-13] MEDS: THIAMINE HCL 100 MG TABLET PO SCH (09:25)
[2020-12-13] MEDS: ENOXAPARIN 40 MG/0.4 ML SQ SCH (09:27)
[2020-12-13] MEDS: predniSONE 20 MG TAB PO SCH ×2 (09:27→20:37)
[2020-12-13] MEDS: ATORVASTATIN 40 MG TAB PO SCH (20:37)
[2020-12-13] MEDS: SERTRALINE HCL 100 MG TAB PO SCH (20:37)
[2020-12-14] MEDS: D5 0.9 NS 1,000 ML IV SCH (01:31)
[2020-12-14] MEDS: PIPER/TAZO/NS 3.375gm 3.375 GM/100 ML BAG IVPB SCH (01:49)
[2020-12-14 06:40] LABS: Absolute Lymphocytes (CBC) 0.6 K/uL (0.7-4.9); Basophils % 0.3 % (0-1.3); Hematocrit 34.7 % (36.0-45.0); Lymphocytes % 4.8 % (15.3-44.8); MPV 10.3 fL (7.6-11.3); RBC Red Blood Cell Count 3.63 M/uL (3.86-4.86)
[2020-12-14 06:55] LABS: BUN Blood Urea Nitrogen 27 mg/dL (7-18); Bicarbonate 30 mmol/L (21-32); Glucose Level 92 mg/dL (74-106); Magnesium 2.1 mg/dL (1.8-2.4); Potassium 4.2 mmol/L (3.5-5.1); Sodium Level 137 mmol/L (136-145)
[2020-12-14] MEDS: ARFORMOTEROL TARTRATE 15 MCG/2 ML VIAL.NEB NEB SCH (07:30)
--- NOTE | 2020-12-14 07:45 | P.DS ---
Admission Date: 12/12/20 Discharge Date: 12/14/20 Primary Care Provider: Dr. Christensen; Pulmonary-Dr. Chin Disposition: HOSPICE-HOME Discharge Condition: GOOD Reason for Admission: Altered mental status Consultations: Neurology-Dr. Sousa Procedures: COVID: Negative CT brain: FINDINGS: No intracranial hemorrhage is present. No midline shift. Moderate severity atrophy and advanced chronic ischemic changes are present as a baseline. Ventricles are in proportion to the amount of volume loss. Approximately 5 centimeter area of diminished attenuation is present involving the left occipital and parietal lobes. There is loss of pace matter - white matter differentiation and sulcal effacement. No similar findings elsewhere. Mastoid air cells and visualized portions of the paranasal sinuses are clear. No acute bony findings. IMPRESSION: Approximately 5 centimeter sized subacute nonhemorrhagic left parietooccipital CVA. Moderate atrophy as a baseline with very advanced chronic ischemic change. Ventricles are in proportion to volume loss. CT neck: FINDINGS: Cervical bodies are normal in height. No fracture or pathologic bone process identifiable. There is a minimal left convex scoliotic curvature in the spine. Very slight retrolisthesis of C3 on C4 noted. Advanced degenerative change present at the dens anterior arch C1 level. Degenerative change present as well at the C1 lateral mass articulation with the C2 body. Advanced degenerative change at C6-7 with posterior endplate spurring and mild bilateral bony foraminal encroachment. Multilevel facet joint degenerative change. No other significant cervical spine finding. No paraspinal mass or hematoma. Central canal detail is inherently limited on CT imaging. IMPRESSION: Cervical spine degenerative changes are present as detailed. No central spinal stenosis or significant foraminal stenosis changes. Exam is inherently limited in the central canal. Follow up CXR: COMPARISON: December 12, 2020 FINDINGS: The left hemidiaphragm remains elevated. Mild improvement right pulmonary opacities. No change in left pulmonary opacities. The residual lung opacities are likely mostly chronic. Heart is borderline enlarged. 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 Patient is currently with [facility] hospice due to her end-stage COPD. Patient was brought in by family due to altered mental status. Daughter reports that the patient fell likely on Tuesday. She had reported some pain to her chest. Hospice had been providing medication for pain. Yesterday the patient got morphine and tramadol. Poor intake noted. Daughter reported this morning that the patient had difficulty responding. Increase sedation noted. She was brought into the ER for further evaluation. In the ER patient evaluated. CT scan revealed 5 cm size subacute nonhemorrhagic left parietal occipital CVA. Very advanced chronic ischemic changes also noted. Chest x-ray showed extensive interstitial opacification in both lungs likely interstitial lung disease. Fibrosis suspected. C-spine showed degenerative changes. White count 20, hemoglobin 12.2. Platelet count 224. Sodium 139, potassium 4.6. BUN 44, creatinine 0.6 with a GFR of 87. Glucose 142. Lactic acid 1.6. INR 0.93. Patient was evaluated for possible admission versus going home with hospice. Daughter at bedside reports patient currently in hospice care. Daughter reports patient is DO NOT RESUSCITATE and DO NOT INTUBATE. Medications reviewed with daughter. Patient takes Mirapex 1.5 mg daily, prednisone 20 mg daily, sertraline 100 mg daily, Lasix 20 mg daily, Risperdal 0.5 mg daily, Norvasc 10 mg daily, alprazolam 0.5 mg twice daily and carbidopa levodopa 25/100 mg daily. Hospital Course: Patient presented with acute encephalopathy. Patient found to have 5 cm subacute nonhemorrhagic left parietal occipital CVA. Patient currently on hospice due to end-stage COPD with interstitial fibrosis on chronic steroids. Patient was admitted for further evaluation and treatment. In her evaluation leukocytosis was identified. This was related to bilateral pneumonia. Patient was given IV fluids and IV antibiotic therapy. Patient has improved. Case discussed in detail with neurology. No need for further evaluation of CVA since the patient is on hospice. This was addressed in detail with the daughter, who agreed with plan of care. Chest x-ray shows improvement. On lipid panel LDL 79. Patient able to pass swallow screen. Patient on pured diet at this time. Physical therapy did evaluate patient. Patient reported some vision changes. Good range of motion noted. At discharge she is without significant shortness of breath or chest pain. At discharge the patient will go back on hospice for her end-stage COPD. Patient currently on 4 L per nasal cannula. She will continue with oxygen to maintain sats above 93%. For her pneumonia she will continue with Augmentin 500 mg twice daily for 7 days. Patient may benefit with repeat chest x-ray in 2 to 4 weeks to monitor resolution. Aspiration precaution in place. For her CVA, patient will continue with aspirin 81 mg daily, Lipitor 10 mg daily, folic acid 1 mg daily, and thiamine 100 mg daily. No further work-up required at this time. Patient will return back to hospice. Patient may continue with exercises given by physical therapy. Fall precautions in place. Patient may follow-up with neurology as needed. Patient with end-stage COPD with interstitial fibrosis on hospice. Patient will return back to hospice at this time. Currently on 4 L per nasal cannula. At discharge she will continue with prednisone 20 mg daily. Maintain sats above 93%. Patient will continue with her COPD medication. Hospice to further monitor and adjust medication. Patient with hypertension. Medications have been adjusted. At discharge she will continue with Norvasc 5 mg daily. Recommend to maintain blood pressure less than 130/80. Further adjustment can be done by her PCP. Patient with depression with anxiety. At discharge she will continue with Zoloft 100 mg daily. Patient also takes Xanax 0.5 mg 1 pill twice daily. This should be used as needed. Hold if with increased sedation. Patient with restless leg syndrome. At discharge she will continue with her medication-Mirapex 1.5 mg at bedtime. Hospice to further adjust her medications. Patient takes Risperdal 0.5 mg 1 pill twice daily. Will recommend to change this to twice daily as needed for agitation. If with increased sedation discontinue. Patient also takes carbidopa levodopa. Daughter reports no history of Parkinson's. Will recommend to discontinue medication if no diagnosis is clear. If pain medication required will recommend tramadol or Tylenol #3, instead of morphine as initial medication. This can be further addressed by hospice. Vital Signs/Physical Exam: Temp Pulse Resp BP Pulse Ox 97.7 F 90 18 128/76 92 12/14/20 04:00 12/14/20 04:00 12/14/20 04:00 12/14/20 04:00 12/14/20 04:00 General: Alert, In no apparent distress, Oriented x3, Cooperative HEENT: Atraumatic Neck: Supple Respiratory: Other (Mild wheezing bilateral) Cardiovascular: Normal pulses, Regular rate/rhythm Gastrointestinal: Normal bowel sounds, Soft and benign, Non-distended, No masses, No rebound, No guarding Musculoskeletal: No erythema, No tenderness, No warmth Integumentary: No erythema, No warmth, No cyanosis Neurological: Normal speech, Normal strength at 5/5 x4 extr, Normal tone, Normal affect Laboratory Data at Discharge: WBC 12.50 K/uL (4.3-10.9) H 12/14/20 06:01 Hgb 12.0 g/dL (12.0-15.0) 12/14/20 06:01 Hct 34.7 % (36.0-45.0) L 12/14/20 06:01 Plt Count 162 K/uL (152-406) 12/14/20 06:01 PT 10.7 SECONDS (9.5-12.5) 12/12/20 11:04 INR 0.93 12/12/20 11:04 APTT 23.3 SECONDS (24.3-36.9) L 12/12/20 11:04 Sodium 137 mmol/L (136-145) 12/14/20 06:01 Potassium 4.2 mmol/L (3.5-5.1) 12/14/20 06:01 BUN 27 mg/dL (7-18) H 12/14/20 06:01 Creatinine 0.45 mg/dL (0.55-1.3) L 12/14/20 06:01 Glucose 92 mg/dL (74-106) 12/14/20 06:01 Magnesium 2.1 mg/dL (1.8-2.4) 12/14/20 06:01 Total Bilirubin 0.3 mg/dL (0.2-1.0) 12/12/20 11:04 AST 21 U/L (15-37) 12/12/20 11:04 ALT 11 U/L (12-78) L 12/12/20 11:04 Alkaline Phosphatase 53 U/L (45-117) 12/12/20 11:04 Triglycerides 91 mg/dL (<150) 12/13/20 05:52 Cholesterol 155 mg/dL (<200) 12/13/20 05:52 HDL Cholesterol 58 mg/dL (40-60) 12/13/20 05:52 Cholesterol/HDL Ratio 2.67 12/13/20 05:52 Home Medications: ALPRAZolam [Xanax*] 0.5 mg PO BID PRN 12/12/20 predniSONE [Prednisone*] 20 mg PO DAILY 12/12/20 Pramipexole [Mirapex*] 1.5 mg PO DAILY 12/14/20 Risperidone [Risperdal] 1 tab PO BID 12/14/20 Sertraline [Zoloft*] 100 mg PO DAILY 12/14/20 clonazePAM [Clonazepam] 0.5 mg PO DAILY 12/14/20 Physician Discharge Instructions: Patient presented with acute encephalopathy. Patient found to have 5 cm subacute nonhemorrhagic left parietal occipital CVA. Patient currently on hospice due to end-stage COPD with interstitial fibrosis on chronic steroids. Patient was admitted for further evaluation and treatment. In her evaluation leukocytosis was identified. This was related to bilateral pneumonia. Patient was given IV fluids and IV antibiotic therapy. Patient has improved. Case discussed in detail with neurology. No need for further evaluation of CVA since the patient is on hospice. This was addressed in detail with the daughter, who agreed with plan of care. Chest x-ray shows improvement. On lipid panel LDL 79. Patient able to pass swallow screen. Patient on pured diet at this time. Physical therapy did evaluate patient. Patient reported some vision changes. Good range of motion noted. At discharge she is without significant shortness of breath or chest pain. At discharge the patient will go back on hospice for her end-stage COPD. Patient currently on 4 L per nasal cannula. She will continue with oxygen to maintain sats above 93%. For her pneumonia she will continue with Augmentin 500 mg twice daily for 7 days. Patient may benefit with repeat chest x-ray in 2 to 4 weeks to monitor resolution. Aspiration precaution in place. For her CVA, patient will continue with aspirin 81 mg daily, Lipitor 10 mg daily, folic acid 1 mg daily, and thiamine 100 mg daily. No further work-up required at this time. Patient will return back to hospice. Patient may continue with exercises given by physical therapy. Fall precautions in place. Patient may follow-up with neurology as needed. Patient with end-stage COPD with interstitial fibrosis on hospice. Patient will return back to hospice at this time. Currently on 4 L per nasal cannula. At discharge she will continue with prednisone 20 mg daily. Maintain sats above 93%. Patient will continue with her COPD medication. Hospice to further monitor and adjust medication. Patient with hypertension. Medications have been adjusted. At discharge she will continue with Norvasc 5 mg daily. Recommend to maintain blood pressure less than 130/80. Further adjustment can be done by her PCP. Patient with depression with anxiety. At discharge she will continue with Zoloft 100 mg daily. Patient also takes Xanax 0.5 mg 1 pill twice daily. This should be used as needed. Hold if with increased sedation. Patient with restless leg syndrome. At discharge she will continue with her medication-Mirapex 1.5 mg at bedtime. Hospice to further adjust her medications. Patient takes Risperdal 0.5 mg 1 pill twice daily. Will recommend to change this to twice daily as needed for agitation. If with increased sedation discontinue. Patient also takes carbidopa levodopa. Daughter reports no history of Parkinson's. Will recommend to discontinue medication if no diagnosis is clear. If pain medication required will recommend tramadol or Tylenol #3, instead of morphine as initial medication. This can be further addressed by hospice. Diet: pureed Activity: Fall precautions Followup: CAIT CHAVIRA [Primary Care Provider] - Time spent managing pt's care (in minutes): 55
[2020-12-14] MEDS ORDERED: AMOX/K CLAV 500 MG TAB PO SCH (09:00)
[2020-12-14 09:40] VITALS: O2SAT 94
[2020-12-14] MEDS: ASPIRIN EC 81 MG TAB PO SCH (10:04)
[2020-12-14] MEDS: FAMOTIDINE 20 MG TAB PO SCH (10:04)
[2020-12-14] MEDS: AMLODIPINE 5 MG TAB PO SCH (10:05)
[2020-12-14] MEDS: FOLIC ACID 1 MG TABLET PO SCH (10:05)
[2020-12-14] MEDS: ENOXAPARIN 40 MG/0.4 ML SQ SCH (10:05)
[2020-12-14] MEDS: predniSONE 20 MG TAB PO SCH (10:05)
[2020-12-14] MEDS: THIAMINE HCL 100 MG TABLET PO SCH (10:05)
[2020-12-14] MEDS ORDERED: clonazePAM 0.5 MG TAB PO SCH (12:00)
[2020-12-14] MEDS ORDERED: PRAMIPEXOLE 1 MG TAB PO SCH (12:00)
[2020-12-14 13:07] VITALS: BP 132/78; TEMP 98.2
== END 2020-12-14 13:40 | disposition hospice, home (50) | DRG 177 ==
LOC: ER 10:13 → ERHOLD 14:44 → 2ND 16:07 → OBSVTOIN 12-14 11:22
PROVIDERS: ADMIT Family Medicine; ATTEND Family Medicine
DX: J69.0 Pneumonitis due to inhalation of food and vomit (principal); I63.9 Cerebral infarction, unspecified; G93.49 Other encephalopathy; G25.81 Restless legs syndrome; F41.8 Other specified anxiety disorders; I10 Essential (primary) hypertension; F17.210 Nicotine dependence, cigarettes, uncomplicated; J84.10 Pulmonary fibrosis, unspecified; J44.9 Chronic obstructive pulmonary disease, unspecified; T38.0X5A Adverse effect of glucocorticoids and synthetic analogues, initial encounter; R29.729 NIHSS score 29; Z66 Do not resuscitate; Z79.899 Other long term (current) drug therapy; Z79.52 Long term (current) use of systemic steroids; Z20.822 Contact with and (suspected) exposure to COVID-19
CPT/HCPCS: 36415; 51702; 70450; 71045; 72125; 80048; 80061; 80076; 80307; 80320; 80329; 81003; 83605; 83735; 84145; 84439; 84443; 85025; 85610; 85730; 87040; 92610; 93005; 94640; 96361; 96365; 96375; 97112; 97161; 97530; 99285; G0378; J0696; J1650; J2543; J2920; J7030; J7042; J7512; J7605; U0003